=== PATIENT | female | born 1990 | race Caucasian/White ===

== ENCOUNTER 2021-05-31 12:48 | Emergency (ER) | payer OTHER ==
[2021-05-31 13:03] VITALS: BP 132/73; PULSE 120; RESP 20; TEMP 99.3
[2021-05-31] MEDS ORDERED: KETOROLAC 15 MG/ML 1 ML VIAL IM STA (13:12)
[2021-05-31] MEDS ORDERED: ORPHENADRINE 30 MG/ML 2 ML VIAL IM STA (13:12)
--- NOTE | 2021-05-31 13:17 | ED ---
General Adult HPI - General Chief complaint: Back Pain/Injury Stated complaint: low back pain Time Seen by Provider: 05/31/21 13:10 Source: patient, RN notes reviewed, old records reviewed Mode of arrival: ambulatory Limitations: no limitations - History of Present Illness Initial comments: 30-year-old female presents to the emergency room with complaints of low back pain for the past 3-4 days. She denies any injury. She states that she did have similar pain in 2017 and did have x-rays done with no definitive diagnosis. She has been continuing to have the pain on and off since. She states that today it became unbearable only position of comfort is leaning forward. She denies any fevers, nausea vomiting diarrhea. She has no medical history. She has a history of cholecystectomy. -: days(s) (4) Location: back (LS spine) Severity scale (1-10): 8 Quality: constant Consistency: constant Improves with: other (bending forward) Associated Symptoms: headaches Treatments Prior to Arrival: none - Related Data Home Medications Medication Instructions Recorded Confirmed Multivit with Calcium,Iron,Min 1 tab PO DAILY 05/31/21 05/31/21 [Women's Multivitamin] Norethindrone [Tri] 0.35 mg PO DAILY 05/31/21 05/31/21 Previous Rx's Medication Instructions Recorded Cyclobenzaprine [Flexeril] 10 mg PO TID PRN #15 tab 05/31/21 Lidocaine [Lidoderm 5% Patch] 1 patch TRANSDERM DAILY 14 Days 05/31/21 #14 patch predniSONE 50 mg PO DAILY #5 tab 05/31/21 Allergies Allergy/AdvReac Type Severity Reaction Status Date / Time Penicillins Allergy Anaphylaxis Verified 05/31/21 14:53 Review of Systems ROS Statement: Those systems with pertinent positive or pertinent negative responses have been documented in the HPI. ROS Other: All systems not noted in ROS Statement are negative. Past Medical History Past Medical History: No Reported History History of Any Multi-Drug Resistant Organisms: None Reported Past Surgical History: Cholecystectomy Past Psychological History: No Psychological Hx Reported Smoking Status: Current every day smoker Past Alcohol Use History: None Reported Past Drug Use History: None Reported General Exam Limitations: no limitations General appearance: alert, in no apparent distress Head exam: Present: atraumatic, normocephalic, normal inspection Eye exam: Present: normal appearance, EOMI ENT exam: Present: normal exam, normal oropharynx, mucous membranes moist Respiratory exam: Present: normal lung sounds bilaterally. Absent: respiratory distress, wheezes, rales, rhonchi, decreased breath sounds Cardiovascular Exam: Present: tachycardia Back exam: Present: normal inspection, tenderness, paraspinal tenderness (LS- spine). Absent: CVA tenderness (R), CVA tenderness (L), rash noted Expanded Back exam: Absent: saddle anesthesia Neurological exam: Present: alert, oriented X3, normal gait Psychiatric exam: Present: normal affect, normal mood Skin exam: Present: warm, dry, intact, normal color. Absent: rash, cyanosis, diaphoretic, erythema, petechiae, pallor Course Vital Signs 05/31/21 12:59 Temperature 99.3 F Pulse Rate 120 H Respiratory 20 Rate Blood Pressure 132/73 O2 Sat by Pulse 99 Oximetry Medical Decision Making - Medical Decision Making 30-year-old female presents with low back pain for the past 3-4 days. She denies any injury. States has had similar pain in the past. Urinalysis is negative for infection and . X-ray of LS-spine shows degenerative disc disease, spondylolysis at L5 minimal listhesis. Patient is feeling better after the Norflex and Toradol shot. She is ambulatory in the room. She is agreeable to being discharged home with Flexeril, prednisone and Lidoderm patches. Directed to follow up with her primary care doctor. Case discussed with Dr Becerra - Lab Data Lab Results 05/31/21 05/31/21 Range/Units 13:56 13:56 Urine Color Yellow Urine Appearance Clear (Clear) Urine pH 7.5 (5.0-8.0) Ur Specific [place] 1.005 (1.001-1.035) Urine Protein Negative (Negative) Urine Glucose (UA) Negative (Negative) Urine Ketones Negative (Negative) Urine Blood Negative (Negative) Urine Nitrite Negative (Negative) Urine Bilirubin Negative (Negative) Urine Urobilinogen <2.0 (<2.0) mg/dL Ur Leukocyte Esterase Negative (Negative) Urine HCG, Qual Not Detected (Not Detectd) Disposition Clinical Impression: Back pain Disposition: HOME SELF-CARE Condition: Good Instructions (If sedation given, give patient instructions): Acute Low Back Pain (ED), Lower Back Exercises (ED) Additional Instructions: Take medication as prescribed. Do not drink alcohol or drive while taking Flexeril. Return to the emergency room with any new or concerning symptoms including increased pain, fevers or incontinence of bowel or bladder. Follow-up with orthopedics for continuation of care. Prescriptions: Cyclobenzaprine [Flexeril] 10 mg PO TID PRN #15 tab PRN Reason: Muscle Spasm Lidocaine [Lidoderm 5% Patch] 1 patch TRANSDERM DAILY 14 Days #14 patch predniSONE 50 mg PO DAILY #5 tab Is patient prescribed a controlled substance at d/c from ED?: No Referrals: None,Stated [Primary Care Provider] - 1-2 days Aly Crabtree DO [Doctor of Osteopathic Medicine] - 1-2 days Time of Disposition: 15:00
--- NOTE | 2021-05-31 14:00 | XR ---
Lumbosacral spine HISTORY: Pain 5 views of lumbosacral spine Surgical clips are present right upper quadrant. Lumbar vertebral bodies show preserved height and kathleen ne mineralization. Suspect bilateral spondylolysis at L5. Minimal anterolisthesis grade 1 L5-S1, retr olisthesis grade 1 at L4-5. Loss of disc height present L4-5 and L5-S1. IMPRESSION: Degenerative disc disease. Suspect spondylolysis at L5 with minimal listhesis as describe d, consider lumbar MRI.
[2021-05-31 14:14] LABS: Appearance,Urine Clear (Clear); Bilirubin,Urine Negative (Negative); Blood,Urine Negative (Negative); Color,Urine Yellow; Glucose,Urine (UA) Negative (Negative); Ketones,Urine Negative (Negative); Leukocyte Esterase,Urine Negative (Negative); Nitrite,Urine Negative (Negative); PH, Urine 7.5 (5.0-8.0); Protein,Urine Negative (Negative); Specific Gravity,Urine 1.005 (1.001-1.035); Urobilinogen,Urine <2.0 mg/dL (<2.0)
== END 2021-05-31 15:15 | disposition home or self-care (01) ==
LOC: EC 12:48
DX: M54.50 Low back pain, unspecified (principal); F17.200 Nicotine dependence, unspecified, uncomplicated; Z88.0 Allergy status to penicillin
CPT/HCPCS: 81003; 81025; 72110; 99283; 96372; J2360; J1885

== ENCOUNTER 2021-06-01 14:46 | Emergency (ER) | payer OTHER ==
[2021-06-01 14:51] VITALS: RESP 18; TEMP 97.9
[2021-06-01] MEDS ORDERED: KETOROLAC 15 MG/ML 1 ML VIAL IM STA (15:14)
[2021-06-01] MEDS ORDERED: ORPHENADRINE 30 MG/ML 2 ML VIAL IM STA (15:15)
[2021-06-01] MEDS ORDERED: ACETAMINOPHEN TAB 500 MG TAB PO STA (15:16)
--- NOTE | 2021-06-01 15:24 | ED ---
Back Pain HPI - General Chief Complaint: Back Pain/Injury Stated Complaint: Back pain Time Seen by Provider: 06/01/21 15:02 Source: patient Limitations: no limitations - History of Present Illness Initial Comments: This 30-year-old female presents emergency Department with lower back pain 4 days. Patient states she is here yesterday where they took an x-ray of her back and told her follow-up with orthopedics. Patient states she went to Dr. Padron office today and saw Conor she states "did nothing for me and sent me home." Patient states she is still having her back pain and in order to see orthopedic she needs to see a primary care provider who can refer her there. Patient states her pain is 10. Patient denies any pain radiating down her legs. She denies any loss of sensation or weakness to her legs or back. Patient denies any chest pain, shortness of breath, abdominal pain, bowel or bladder retention/incontinence, leg weakness, saddle anesthesia, nausea, vomiting, headache, change in vision, neck pain, dizziness, fever. Patient denies IV drug use. - Related Data Home Medications Medication Instructions Recorded Confirmed Multivit with Calcium,Iron,Min 1 tab PO DAILY 05/31/21 05/31/21 [Women's Multivitamin] Norethindrone [Tri] 0.35 mg PO DAILY 05/31/21 05/31/21 Previous Rx's Medication Instructions Recorded Cyclobenzaprine [Flexeril] 10 mg PO TID PRN #15 tab 05/31/21 Lidocaine [Lidoderm 5% Patch] 1 patch TRANSDERM DAILY 14 Days 05/31/21 #14 patch predniSONE 50 mg PO DAILY #5 tab 05/31/21 Allergies Allergy/AdvReac Type Severity Reaction Status Date / Time Penicillins Allergy Anaphylaxis Verified 06/01/21 14:51 Review of Systems ROS Statement: Those systems with pertinent positive or pertinent negative responses have been documented in the HPI. ROS Other: All systems not noted in ROS Statement are negative. Past Medical History Past Medical History: No Reported History History of Any Multi-Drug Resistant Organisms: None Reported Past Surgical History: Cholecystectomy, Tonsillectomy Past Psychological History: No Psychological Hx Reported Smoking Status: Current every day smoker Past Alcohol Use History: None Reported Past Drug Use History: None Reported General Exam Limitations: no limitations General appearance: alert, in no apparent distress Head exam: Present: atraumatic, normal inspection Eye exam: Present: normal appearance, EOMI ENT exam: Present: normal exam, mucous membranes moist Neck exam: Present: normal inspection, full ROM. Absent: tenderness, meningismus, lymphadenopathy Respiratory exam: Present: normal lung sounds bilaterally. Absent: respiratory distress, wheezes, rales, rhonchi, stridor Cardiovascular Exam: Present: regular rate, normal rhythm, normal heart sounds. Absent: systolic murmur, diastolic murmur, rubs, gallop, clicks GI/Abdominal exam: Present: soft, normal bowel sounds. Absent: distended, tenderness, guarding, rebound, rigid Extremities exam: Present: normal inspection, full ROM, normal capillary refill. Absent: tenderness, pedal edema, joint swelling, calf tenderness Back exam: Present: tenderness (Lumbar spine tender to palpation. Lumbar region tender to light palpation on patient paraspinal areas.), paraspinal tenderness, vertebral tenderness Neurological exam: Present: alert, oriented X3, CN II-XII intact Psychiatric exam: Present: normal affect, normal mood Skin exam: Present: warm, dry, intact, normal color. Absent: rash Course Vital Signs 06/01/21 06/01/21 14:48 16:36 Temperature 97.9 F 97.9 F Pulse Rate 100 76 Respiratory 18 18 Rate Blood Pressure 128/85 95/62 O2 Sat by Pulse 99 99 Oximetry Medical Decision Making - Medical Decision Making This 30-year-old male presents emergency Department with lower back pain [address]: Confirmation of bilateral pars defect at L5 with slight spondylolisthesis L4-L5 level. Disc herniation L4-L5 was noted and could be encroaching on the central right L5 nerve. Patient does not have any red flag symptoms for cauda equina syndrome, strict return precautions were discussed. No evidence of radiculopathy. Patient given pain medication and states she does have some relief to her lower back. Patient is already taking prednisone. Patient given information to follow-up with primary care provider next 24 hours to see orthopedics in next 24-48 hours. Patient given strict return precautions and verbally agreed to plan. Patient sent home in stable condition. Case discussed with my attending, Dr. Henry. - Lab Data Lab Results 06/01/21 06/01/21 Range/Units 15:40 15:40 Urine Color Yellow Urine Appearance Clear (Clear) Urine pH 8.5 H (5.0-8.0) Ur Specific [place] 1.012 (1.001-1.035) Urine Protein Negative (Negative) Urine Glucose (UA) Negative (Negative) Urine Ketones Negative (Negative) Urine Blood Negative (Negative) Urine Nitrite Negative (Negative) Urine Bilirubin Negative (Negative) Urine Urobilinogen <2.0 (<2.0) mg/dL Ur Leukocyte Esterase Negative (Negative) Urine HCG, Qual Not Detected (Not Detectd) Disposition Clinical Impression: Strain of lumbar region Disposition: HOME SELF-CARE Condition: Stable Instructions (If sedation given, give patient instructions): Low Back Strain (ED) Additional Instructions: Please return to the emergency department with any concerning, new, worsening symptoms. Please follow-up with primary care provider next 24 hours to the referral to follow up with orthopedics in next 48 hours. Is patient prescribed a controlled substance at d/c from ED?: No Referrals: Robyn Bowden MD [Primary Care Provider] - 1-2 days Jocy Dillon MD [REFERRING] - 1-2 days Time of Disposition: 16:20
[2021-06-01 15:49] LABS: Appearance,Urine Clear (Clear); Bilirubin,Urine Negative (Negative); Blood,Urine Negative (Negative); Color,Urine Yellow; Glucose,Urine (UA) Negative (Negative); Ketones,Urine Negative (Negative); Leukocyte Esterase,Urine Negative (Negative); Nitrite,Urine Negative (Negative); PH, Urine 8.5 (5.0-8.0); Protein,Urine Negative (Negative); Specific Gravity,Urine 1.012 (1.001-1.035); Urobilinogen,Urine <2.0 mg/dL (<2.0)
--- NOTE | 2021-06-01 15:55 | CT ---
EXAMINATION TYPE: CT lumbar spine wo con DATE OF EXAM: 06/01/2021 3:47 PM COMPARISON: Lumbar spine x-ray from yesterday HISTORY: worsening low back pain, no injury CT DLP: 654.5 mGycm Automated exposure control for dose reduction was used. Unenhanced CT of the lumbar spine was performed. Bone and soft tissue window settings are submitted as well as coronal and sagittal reconstructions. There are 5 lumbar-type vertebra. Mild disc space narrowing L4-L5 and L5-S1 levels otherwise vertebra l body heights and disc space heights are maintained. No acute fracture or dislocation is seen. Bilat eral pars defect L5 level with minimal grade 1 retrolisthesis L4 on L5 redemonstrated. Focal right paracentral disc protrusion L4-L5 level effaces the anterior thecal sac seen best on axia l image 58, bilateral neural foramina are patent. Remainder lumbar levels both within normal limits. Paraspinal muscle bulk is maintained. Cholecystect peyton clips are incidentally noted. IMPRESSION: Confirmation of bilateral pars defect L5 level with slight spondylolisthesis L4-L5 level. Disc herniation L4-L5 level is noted and could be encroaching on the central right L5 nerve. Correla te clinically.
[2021-06-01] MEDS ORDERED: ACET/COD 300 MG/30 MG STARTER PACK 6 TAB BTL PO STA (16:21)
[2021-06-01 16:37] VITALS: BP 95/62; PULSE 76
== END 2021-06-01 16:37 | disposition home or self-care (01) ==
LOC: EC 14:46
DX: S39.012A Strain of muscle, fascia and tendon of lower back, initial encounter (principal); F17.200 Nicotine dependence, unspecified, uncomplicated; Z79.52 Long term (current) use of systemic steroids; X58.XXXA Exposure to other specified factors, initial encounter
CPT/HCPCS: 81003; 81025; 72131; 99284; 96372 ×2; J2360; J1885

== ENCOUNTER 2024-01-22 03:49 | Emergency (ER) | payer SELFPAY ==
[2024-01-22 04:53] LABS: Basophils # (A) 0.1 k/uL (0-0.2); Basophils % (A) 1 %; Eosinophils # (A) 0.3 k/uL (0-0.7); Eosinophils % (A) 3 %; Hypochromasia Moderate; Lymphocytes # (A) 3.4 k/uL (1.0-4.8); Lymphocytes % (A) 35 %; MCHC 31.6 g/dL (31.0-37.0); MCV 88.4 fL (80.0-100.0); Mean Platelet Volume 11.1; Monocytes # (A) 0.5 k/uL (0-1.0); Monocytes % (A) 6 %; Neutrophils # (A) 5.2 k/uL (1.3-7.7); Neutrophils % (A) 53 %; Platelet Count 229 k/uL (150-450); Poikilocytosis Slight; RBC 1.95 m/uL (3.80-5.40); RDW 15.2 % (11.5-15.5); WBC 9.7 k/uL (3.8-10.6)
--- NOTE | 2024-01-22 04:54 | ED ---
General Adult HPI <Alessio Becerra - Last Filed: 01/22/24 10:12> - General Source: patient Mode of arrival: ambulatory Limitations: no limitations - History of Present Illness -: hour(s) Consistency: constant Improves with: none Worsens with: none Associated Symptoms: other (Bleeding) Treatments Prior to Arrival: other (Provera) <LorissuyRay - Last Filed: 02/04/24 07:09> - General Chief complaint: Vaginal Bleeding Stated complaint: Blood In Stool Time Seen by Provider: 01/22/24 04:01 - History of Present Illness Initial comments: Patient is a 33-year-old woman. She states she had recent diagnosis of cervical cancer. Patient states she is being treated through [facility] in [place] where she resides. She is here visiting. Patient notes that she has had an increase in her bleeding since yesterday. She is going through 1-2 pads an hour. Patient also notes that she has run out of Provera that she was taking. Her last dose of this was 5 hours ago. Patient now is feeling lightheaded and she has nearly passed out. She states that the last time she felt this bad she had to receive transfusion. Patient denies significant pelvic pain. No chest pain, diaphoresis, nausea or vomiting. (Ray Ang) - Related Data Home Medications Medication Instructions Recorded Confirmed Multivit with Calcium,Iron,Min 1 tab PO DAILY 05/31/21 05/31/21 [Women's Multivitamin] Norethindrone [Tri] 0.35 mg PO DAILY 05/31/21 05/31/21 Previous Rx's Medication Instructions Recorded Cyclobenzaprine [Flexeril] 10 mg PO TID PRN #15 tab 05/31/21 Lidocaine [Lidoderm 5% Patch] 1 patch TRANSDERM DAILY 14 Days 05/31/21 #14 patch predniSONE 50 mg PO DAILY #5 tab 05/31/21 Allergies Allergy/AdvReac Type Severity Reaction Status Date / Time Penicillins Allergy Anaphylaxis Verified 01/22/24 03:56 Review of Systems ROS Other: All systems not noted in ROS Statement are negative. <Alessio Becerra - Last Filed: 01/22/24 10:12> ROS Other: All systems not noted in ROS Statement are negative. Constitutional: Reports: weakness. Denies: fever, chills Eyes: Denies: vision change Respiratory: Denies: cough, dyspnea Cardiovascular: Denies: chest pain, palpitations, edema, syncope Gastrointestinal: Denies: abdominal pain, nausea, vomiting, diarrhea Genitourinary: Reports: abnormal menses. Denies: dysuria, hematuria Musculoskeletal: Denies: back pain Skin: Denies: rash Neurological: Denies: headache, weakness Hematological/Lymphatic: Denies: easy bleeding <LoriRay jain - Last Filed: 02/04/24 07:09> ROS Statement: Those systems with pertinent positive or pertinent negative responses have been documented in the HPI. Past Medical History Past Medical History: Cancer Additional Past Medical History / Comment(s): cervical cancer, anemia History of Any Multi-Drug Resistant Organisms: None Reported Past Surgical History: Cholecystectomy, Tonsillectomy Past Psychological History: No Psychological Hx Reported Smoking Status: Current every day smoker Past Alcohol Use History: None Reported Past Drug Use History: None Reported <Ray Ang - Last Filed: 02/04/24 07:09> General Exam Limitations: no limitations General appearance: alert, in no apparent distress Head exam: Present: atraumatic, normocephalic Eye exam: Present: normal appearance. Absent: scleral icterus, conjunctival injection Neck exam: Present: normal inspection Respiratory exam: Present: normal lung sounds bilaterally. Absent: respiratory distress, wheezes, rales, rhonchi, stridor, accessory muscle use Cardiovascular Exam: Present: regular rate, normal rhythm, normal heart sounds. Absent: systolic murmur, diastolic murmur, rubs, gallop GI/Abdominal exam: Present: soft. Absent: distended, tenderness, guarding, rebound, rigid, mass Extremities exam: Present: normal inspection, normal capillary refill. Absent: pedal edema, calf tenderness Back exam: Present: normal inspection. Absent: CVA tenderness (R), CVA tenderne ss (L) Neurological exam: Present: alert Skin exam: Present: warm, dry, intact, pallor. Absent: rash <LoriRay jain - Last Filed: 02/04/24 07:09> Course Vital Signs 01/22/24 01/22/24 01/22/24 03:50 05:00 05:56 Temperature 97.9 F Pulse Rate 144 H 103 H 99 Respiratory 18 18 20 Rate Blood Pressure 96/72 100/73 115/105 O2 Sat by Pulse 100 100 100 Oximetry 01/22/24 01/22/24 01/22/24 06:43 07:00 07:20 Temperature 98.5 F 98.5 F 98.4 F Pulse Rate 115 H 127 H 98 Respiratory 18 18 16 Rate Blood Pressure 105/76 100/77 112/80 O2 Sat by Pulse 97 97 99 Oximetry 01/22/24 01/22/24 01/22/24 08:00 08:45 09:07 Temperature 98.4 F Pulse Rate 101 H 98 91 Respiratory 16 18 20 Rate Blood Pressure 109/65 115/87 110/87 O2 Sat by Pulse 97 98 97 Oximetry 01/22/24 09:49 Temperature 99.1 F Pulse Rate 94 Respiratory 18 Rate Blood Pressure 91/70 O2 Sat by Pulse 100 Oximetry EKG Findings - EKG Results: EKG: sinus rhythm, normal axis, normal QRS EKG shows: tachycardia (Rate 123) - Blocks, [place], Hypertrophy, ST Abn: Repolarization changes or abnormalities: nonspecific abnormality, ST segment, and/or T wave <Ray Ang - Last Filed: 02/04/24 07:09> Medical Decision Making - Lab Data Result diagrams: 01/22/24 04:45 01/22/24 04:45 <Alessio Becerra - Last Filed: 01/22/24 10:12> - Lab Data Result diagrams: 01/22/24 04:45 01/22/24 04:45 <Ray Ang - Last Filed: 02/04/24 07:09> - Medical Decision Making Patient care signed out to me by previous shift physician, Dr. Martinez. Briefly, patient 33-year-old female with history of cervical cancer. She is here for vaginal bleeding. Patient has history with extensive vaginal bleeding from hi story of cervical cancer. She lives in [place] and she is in town visiting family. Patient is very pale at bedside tachycardic. Patient have symptoms of symptomatic anemia. Plan at signout was to reevaluate patient after end of blood transfusion. Patient adamant to be discharged after only 1 unit of PRBCs. Understands that her hemoglobin is significantly low and 1 unit may not be enough to get her to a stable range especially since patient is having bouts of vaginal bleeding. Patient states that she feels like the bleeding had stopped. The patient states she will be leaving for home tomorrow. She understands that she is in critical condition given degree of blood loss and laboratory abnormalities. Patient has signs of risk of being discharged. Patient willing to sign out AGAINST MEDICAL ADVICE. Risks, Benefits, and Treatment alternatives were discussed in detail with the patient. The patient is alert and oriented X 3 and has the capacity to make an informed decision. The risks of increased morbidity including the possibly of were explained to and understood by th e patient who is choosing to leave against medical advice. The patient is encouraged to return any time should they want further treatment and diagnostic investigation. Patient of sound mind and judgment at the time of this conversation. (Alessio Becerra) Was pt. sent in by a medical professional or institution (, PA, WORKERS COMPENSATION ATTORNEY, urgent care, hospital, or fdc...) When possible be specific @ -[No] Did you speak to anyone other than the patient for history (EMS, parent, family, police, friend...)? What history was obtained from this source @ -[Patient's father did contribute some history Did you review nursing and triage notes (agree or disagree)? Why? @ -[I reviewed and agree with nursing and triage notes] Were old charts reviewed (outside hosp., previous admission, EMS record, old EKG, old radiological studies, urgent care reports/EKG's, fdc records)? Report findings @ -[No old charts were reviewed] Differential Diagnosis (chest pain, altered mental status, abdominal pain women, abdominal pain men, vaginal bleeding, weakness, fever, dyspnea, syncope, headache, dizziness, GI bleed, back pain, seizure, CVA, palpatations, mental health, musculoskeletal)? @ -[Differential Dizziness: Benign paroxysmal positional Vertigo, Meniere's disease, otitis media, acoustic neuroma, vertebrobasilar insufficiency, cerebellar stroke, encephalitis, hypovolemic, arrhythmia, coronary artery syndrome, anemia, this is not meant to be an all-inclusive list EKG interpreted by me (3pts min.). @ -[I interpreted as above] X-rays interpreted by me (1pt min.). @ -[None done] CT interpreted by me (1pt min.). @ -[None done] U/S interpreted by me (1pt. min.). @ -[None done] What testing was considered but not performed or refused? (CT, X-rays, U/S, labs)? Why? @ -[None] What meds were considered but not given or refused? Why? @ -[None] Did you discuss the management of the patient with other professionals (professionals i.e. , PA, WORKERS COMPENSATION ATTORNEY, lab, RT, psych nurse, social service liaison, it security consulting director, teacher, information officer, caser shoe parts)? Give summary @ -[No] Was smoking cessation discussed for >3mins.? @ -[No] Was critical care preformed (if so, how long)? @ -[Yes, 30 minutes Were there social determinants of health that impacted care today? How? (Homelessness, low income, unemployed, alcoholism, drug addiction, transportation, low edu. Level, literacy, decrease access to med. care, usp, rehab)? @ -[No] Was there de-escalation of care discussed even if they declined (Discuss DNR or withdrawal of care, Hospice)? DNR status @ -[No] What co-morbidities impacted this encounter? (DM, HTN, Smoking, COPD, CAD, Cancer, CVA, ARF, Chemo, Hep., AIDS, mental health diagnosis, sleep apnea, morbid obesity)? @ -[None] Was patient admitted / discharged? Hospital course, mention meds given and route, prescriptions, significant lab abnormalities, going to OR and other pertinent info. @ -[This patient is 33-year-old woman with history of cervical cancer and presenting with vaginal bleeding. The patient declined to have gynecologic exa m. The patient found to be significantly anemic and had type and cross and was pending completion of transfusion at the time of shift change. Undiagnosed new problem with uncertain prognosis? @ -[No] Drug Therapy requiring intensive monitoring for toxicity (Heparin, Nitro, Insulin, Cardizem)? @ -[No] Were any procedures done? @ -[No] Diagnosis/symptom? @ -[Acute vaginal bleeding Acute on chronic anemia Sinus tachycardia Acute, or Chronic, or Acute on Chronic? @ -[ Uncomplicated (without systemic symptoms) or Complicated (systemic symptoms)? @ -[Complicated by sinus tachycardia Side effects of treatment? @ -[No] Exacerbation, Progression, or Severe Exacerbation? @ -[No] Poses a threat to life or bodily function? How? (Chest pain, [place], [place], pneumonia, PE, COPD, DKA, ARF, appy, cholecystitis, CVA, Diverticulitis, Homicidal, Suicidal, threat to staff... and all critical care pts) @ -[Yes, there is risk of exsanguination or organ failure due to hypovolemia (Ray Ang) - Lab Data Lab Results 01/22/24 01/22/24 01/22/24 Range/Units 04:45 04:45 04:53 WBC 9.7 (3.8-10.6) k/uL RBC 1.95 L (3.80-5.40) m/uL Hgb 5.5 L* (11.4-16.0) gm/dL Hct 17.2 L* (34.0-46.0) % MCV 88.4 (80.0-100.0) fL MCH 28.0 (25.0-35.0) pg MCHC 31.6 (31.0-37.0) g/dL RDW 15.2 (11.5-15.5) % Plt Count 229 (150-450) k/uL MPV 11.1 Neutrophils % 53 % Lymphocytes % 35 % Monocytes % 6 % Eosinophils % 3 % Basophils % 1 % Neutrophils # 5.2 (1.3-7.7) k/uL Lymphocytes # 3.4 (1.0-4.8) k/uL Monocytes # 0.5 (0-1.0) k/uL Eosinophils # 0.3 (0-0.7) k/uL Basophils # 0.1 (0-0.2) k/uL Hypochromasia Moderate Poikilocytosis Slight PT (10.0-12.5) sec INR (<1.2) APTT (22.0-30.0) sec Sodium 133 L (137-145) mmol/L Potassium 3.1 L (3.5-5.1) mmol/L Chloride 96 L (98-107) mmol/L Carbon Dioxide 19 L (22-30) mmol/L Anion Gap 18 mmol/L BUN 4 L (7-17) mg/dL Creatinine 0.65 (0.52-1.04) mg/dL Est GFR (CKD-EPI)AfAm >90 (>60 ml/min/1.73 sqM) Est GFR (CKD-EPI)NonAf >90 (>60 ml/min/1.73 sqM) Glucose 129 H (74-99) mg/dL Calcium 8.7 (8.4-10.2) mg/dL Blood Type A Positive Blood Type Confirm Blood Type Recheck No Previous Record Bld Type Recheck Status CABO Indicated Antibody Screen NEGATIVE Crossmatch See Detail Spec Expiration Date 01/25/2024 - 235201/22/24 01/22/24 Range/Units 04:58 05:43 WBC (3.8-10.6) k/uL RBC (3.80-5.40) m/uL Hgb (11.4-16.0) gm/dL Hct (34.0-46.0) % MCV (80.0-100.0) fL MCH (25.0-35.0) pg MCHC (31.0-37.0) g/dL RDW (11.5-15.5) % Plt Count (150-450) k/uL MPV Neutrophils % % Lymphocytes % % Monocytes % % Eosinophils % % Basophils % % Neutrophils # (1.3-7.7) k/uL Lymphocytes # (1.0-4.8) k/uL Monocytes # (0-1.0) k/uL Eosinophils # (0-0.7) k/uL Basophils # (0-0.2) k/uL Hypochromasia Poikilocytosis PT 11.6 (10.0-12.5) sec INR 1.1 (<1.2) APTT 20.1 L (22.0-30.0) sec Sodium (137-145) mmol/L Potassium (3.5-5.1) mmol/L Chloride (98-107) mmol/L Carbon Dioxide (22-30) mmol/L Anion Gap mmol/L BUN (7-17) mg/dL Creatinine (0.52-1.04) mg/dL Est GFR (CKD-EPI)AfAm (>60 ml/min/1.73 sqM) Est GFR (CKD-EPI)NonAf (>60 ml/min/1.73 sqM) Glucose (74-99) mg/dL Calcium (8.4-10.2) mg/dL Blood Type Blood Type Confirm A Positive Blood Type Recheck Bld Type Recheck Status Antibody Screen Crossmatch Spec Expiration Date Disposition Is patient prescribed a controlled substance at d/c from ED?: No Time of Disposition: 09:39 <Alessio Becerra - Last Filed: 01/22/24 10:12> <Ray Ang - Last Filed: 02/04/24 07:09> Clinical Impression: Anemia Disposition: LEFT AGAINST MEDICAL ADVICE Condition: Serious Instructions (If sedation given, give patient instructions): Cervical Cancer (DC), Acute Posthemorrhagic Anemia (DC) Referrals: None,Stated [Primary Care Provider] - 1-2 days
[2024-01-22] MEDS: TRANEXAMIC 1,000 MG/100ML-NACL 1,000 MG in SALINE 1 100ML.BAG IVPB ONE ×2 (05:01→07:40)
[2024-01-22 05:06] LABS: African American GFR (CKD) >90 (>60 ml/min/1.73 sqM); Anion Gap 18 mmol/L; Blood Urea Nitrogen 4 mg/dL (7-17); Calcium 8.7 mg/dL (8.4-10.2); Carbon Dioxide 19 mmol/L (22-30); Chloride 96 mmol/L (98-107); Glucose 129 mg/dL (74-99); Non-African American GFR(CKD) >90 (>60 ml/min/1.73 sqM); Potassium 3.1 mmol/L (3.5-5.1); Sodium 133 mmol/L (137-145)
[2024-01-22 05:11] LABS: HCT 17.2 % (34.0-46.0); HGB 5.5 gm/dL (11.4-16.0)
[2024-01-22] MEDS: ONDANSETRON 4 MG/2 ML VIAL IVP STA (05:24)
[2024-01-22 06:21] LABS: INR 1.1 (<1.2); Prothrombin Time 11.6 sec (10.0-12.5)
[2024-01-22 06:25] LABS: Partial Thromboplastin Time 20.1 sec (22.0-30.0)
[2024-01-22] MEDS: POTASSIUM CHLORIDE ER 20 MEQ TAB.ER PO STA (06:55)
[2024-01-22 09:49] VITALS: BP 91/70; PULSE 94; RESP 18; TEMP 99.1
== END 2024-01-22 09:56 | disposition left against medical advice (07) ==
LOC: EC 03:49
CPT/HCPCS: 36415; 36430; 80048; 85025; 85610; 85730; 86850; 86900; 86901; 86920; 93005; 96365; 99283